=== PATIENT | male | born 1990 | race Asian ===

== ENCOUNTER 2016-12-04 12:29 | Emergency (ER) | payer OTHER ==
[~2016-12-04] VITALS: Ht 170.2 cm; Wt 103.1 kg
[2016-12-04 14:03] LABS: BLOOD UREA NITROGEN 13 mg/dL (7-18)
[2016-12-04 14:08] LABS: IS PT STATUS REG ER OR PRE ER? YES
[2016-12-04] MEDS ORDERED: KETOROLAC 30 MG/1 ML IM ONE (14:30)
[2016-12-04] MEDS ORDERED: LORazepam 2 MG/ML, 1ML IVPush ONE (14:30)
[2016-12-04] MEDS ORDERED: LORazepam 0.5MG TABLET ONE (14:40)
[2016-12-04] MEDS ORDERED: KETOROLAC 30 MG/1 ML ONE (14:40)
[2016-12-04] MEDS ORDERED: LORazepam 2 MG/ML, 1ML ONE (14:50)
[2016-12-04 15:32] VITALS: BP 137/86
== END 2016-12-04 15:57 | disposition home or self-care (01) ==
LOC: ED 15:02
DX: R07.89 Other chest pain (principal); I10 Essential (primary) hypertension
CPT/HCPCS: 36415; 71020; 80048; 82040; 84439; 84443; 84484; 85025; 85379; 93005; 96372; 96374; 99285; J1885; J2060